=== PATIENT | male | born 1970 | race Caucasian/White ===

== ENCOUNTER 2016-12-02 04:00 | Inpatient (IN) | payer OTHER ==
[~2016-12-02] VITALS: Ht 175.3 cm; Wt 30.3 kg
[2016-12-02] VITALS (16 sets, daily range): BP systolic 93–199; BP diastolic 58–124
[~2016-12-02 04:00] MED LIST: Ativan PO; Bactrim,Septra Singl; DIAZEPAM5 MG PO; Dulcolax PO; FLEXERIL10 MG PO; HYDROCODON-ACE1 EAC7 PO; LORTAB 7.5/51 TABLET PO; MOTRIN800 MG PO; NIFEREX-1501 CAPSULE PO; NOHOMEMEDS; OxyCONTIN PO; Senokot,Sennagen PO; Tylenol Regular Stre PO; ULTRAM50 MG PO; VALIUM5 MG PO; oxyCODONE PO
[2016-12-02 04:12] LABS: BASE EXCESS -3.3 mEq/L (-3 to +3); BICARBONATE 22.1 mEq/L (22-26); CARBOXY HGB 5.8 % (0-5); COMMENTS - BLOOD GASES C+A+; DEVICE 840 VENT; FI02 80 %; MECHANICAL RATE 18 resp/min; METHEMOGLOBIN 1.2 % (0-1.5); MODE AC; PCO2 40 mm Hg (35-45); PEEP 5 CM/H20; PO2 269 mm Hg (80-100); SITE LR; TIDAL VOLUME 500 ML; TOTAL RESP RATE 34 resp/min; pH 7.35 (7.35-7.45)
[2016-12-02 04:17] LABS: POTASSIUM 3.6 mEq/L (3.7-5.4)
[2016-12-02 04:22] LABS: HEMATOCRIT 45.5 % (38.0-50.0); MCH 30.5 PG (29.0-34.0); MCHC 33.4 G/DL (30.0-36.0); MCV 91.4 FL (86-99); MEAN PLAT.VOLUME 8.6 uM^3 (9.0-12.4); PLATELET COUNT 381 K/uL (156-360); RBC DIS.WIDTH-CV 13.6 % (11.8-14.6); RBC DIS.WIDTH-SD 44.4 % (39-53); RED BLOOD COUNT 4.98 M/uL (4.00-5.50); WHITE BLOOD COUNT 20.4 K/uL (4.1-10.2)
[2016-12-02 04:24] LABS: BASOPHIL COUNT 0.1 K/uL (0-0.1); EOSINOPHIL (%) 1.4 % (0-5); EOSINOPHIL COUNT 0.3 K/uL (0-0.3); IMMATURE GRANULOCYTE (%) 1.9 % (0.0-0.7); IMMATURE GRANULOCYTE COUNT 3.9 K/uL; LYMPHOCYTE COUNT 5.7 K/uL (1.0-2.8); MONOCYTE (%) 5.3 % (3-12); MONOCYTE COUNT 1.1 K/uL (0-0.8); NEUTROPHIL (%) 63.5 % (45-76); NEUTROPHIL COUNT 12.9 K/uL (1.8-6.4)
[2016-12-02 04:32] LABS: INTER. NORMALIZED RATIO 1.1; PTT 30.1 (25-32)
[2016-12-02 04:34] LABS: AMYLASE 88 IU/L (1-118); CHLORIDE 103 mEq/L (99-109); POTASSIUM 3.7 mEq/L (3.7-5.4); SODIUM 139 mEq/L (136-147)
[2016-12-02 04:35] LABS: GLUCOSE 244 mg/dL (70-99)
[2016-12-02 04:37] LABS: ANION GAP 17 MEQ/L (2-14)
[2016-12-02 04:39] LABS: GFR ESTIMATE (CALCULATED) > 59 mL/min/; SERUM ETHYL ALCOHOL < 10 mg/dL
[2016-12-02 04:40] LABS: UREA NITROGEN (BUN) 13 mg/dL (9-23)
[2016-12-02 04:42] LABS: LIPASE 73 U/L (1.0-51.0)
[2016-12-02 04:43] LABS: CREATINE KINASE 183 IU/L (1-294); TOTAL CK 183 IU/L (1-294)
[2016-12-02 04:44] LABS: ADD MIUA? YES; BILIRUBIN NEGATIVE; BLOOD MODERATE; COLOR YELLOW ((YELLOW)); GLUCOSE (STRIP) 250; KETONES NEGATIVE; LEUKOCYTES NEGATIVE; NITRITE NEGATIVE; PROTEIN (STRIP) 100; SPECIFIC GRAVITY 1.026 (1.000-1.030); UROBILINOGEN 0.2 MG/DL (0.2-1.0)
[2016-12-02 04:48] LABS: CK-MB 0.9 ng/mL (0.0-4.9); TROP-I INTERPRETATION NEGATIVE; TROPONIN-I < 0.01 ng/mL (0.0-0.30)
[2016-12-02 05:05] LABS: ADD MEDTOX COMMENT Y; AMPHETAMINE NEGATIVE (500 ng/mL); BARBITURATES NEGATIVE (200 ng/mL); BENZODIAZEPINES PRESUMPTIVE POSITIVE (150 ng/mL); COCAINE PRESUMPTIVE POSITIVE (150 ng/mL); INTERNAL CONTROLS VALID? YES; METHADONE NEGATIVE (200 ng/mL); METHAMPHETAMINE NEGATIVE (500 ng/mL); OPIATES (MORPHINE) NEGATIVE (100 ng/mL); OXYCODONE NEGATIVE (100 ng/mL); PHENCYCLIDINE NEGATIVE (25 ng/mL); PROPOXYPHENE NEGATIVE (300 ng/mL); THC CANNABINOIDS PRESUMPTIVE POSITIVE (50 ng/mL); TRICYCLIC ANTIDEPRESSANTS NEGATIVE (300 ng/mL)
[2016-12-02 05:39] LABS: BENZODIAZEPINES, URINE SCREEN POSITIVE (200 ng/mL)
[2016-12-02 05:44] LABS: EPITHELIAL CELLS RARE; MUCUS NONE SEEN; RED BLOOD CELLS 20-30 /HPF (0-5); WHITE BLOOD CELLS 0-5 /HPF (0-5)
[2016-12-02 05:46] LABS: BACTERIA 1+; CASTS PRESENT /LPF; UCUL ADDED? NO
[2016-12-02 05:47] LABS: FINE GRANULAR CASTS RARE /LPF
[2016-12-02 05:52] LABS: CRYSTALS NONE SEEN
[2016-12-02 10:37] LABS: BASE EXCESS -1.1 mEq/L (-3 to +3); BICARBONATE 24.8 mEq/L (22-26); METHEMOGLOBIN 1.5 % (0-1.5); pH 7.35 (7.35-7.45)
[2016-12-02 10:38] LABS: COMMENTS - BLOOD GASES NA C+; DEVICE VENT; FI02 60 %; MECHANICAL RATE 18 resp/min; MODE AC; PCO2 45 mm Hg (35-45); PEEP 5 CM/H20; PO2 109 mm Hg (80-100); SITE RR; TIDAL VOLUME 500 ML; TOTAL RESP RATE 18 resp/min
[2016-12-02 10:59] LABS: METH RESISTANT S AUREUS PCR NEGATIVE (NEGATIVE); PROBE CHECK PASS; SPECIMEN PROCESSING CONTROL PASS
[2016-12-02 12:14] LABS: MAGNESIUM 2.1 mg/dl (1.3-2.7); SAMPLE HEMOLYSIS CHECK 0; SAMPLE ICTERIC CHECK 0; SAMPLE LIPEMIA CHECK 0
[2016-12-02 12:37] LABS: POINT-OF-CARE METER ID UU13113748
[2016-12-02 13:05] LABS: PROTHROMBIN TIME 10.5 (9.2-11.2); PTT 30.1 (25-32)
[2016-12-02 13:08] LABS: EOSINOPHIL (%) 0.1 % (0-5); IMMATURE GRANULOCYTE (%) 0.5 % (0.0-0.7); IMMATURE GRANULOCYTE COUNT 0.1 K/uL; LYMPHOCYTE COUNT 1.2 K/uL (1.0-2.8); MCH 30.5 PG (29.0-34.0); MCHC 33.2 G/DL (30.0-36.0); MCV 91.7 FL (86-99); MEAN PLAT.VOLUME 9.3 uM^3 (9.0-12.4); MONOCYTE (%) 7.7 % (3-12); MONOCYTE COUNT 2.2 K/uL (0-0.8); NEUTROPHIL (%) 87.5 % (45-76); PLATELET COUNT 276 K/uL (156-360); RBC DIS.WIDTH-CV 13.9 % (11.8-14.6); RBC DIS.WIDTH-SD 46.6 % (39-53); RED BLOOD COUNT 5.45 M/uL (4.00-5.50)
[2016-12-02 13:34] LABS: WHITE BLOOD COUNT 28.6 K/uL (4.1-10.2)
[2016-12-02 13:47] LABS: CREATINE KINASE 359 IU/L (1-294); TOTAL CK 359 IU/L (1-294)
[2016-12-02 13:47] LABS: ALKALINE PHOSPHATASE 118 IU/L (3-129); ANION GAP 10 MEQ/L (2-14); CHLORIDE 108 MEQ/L (99-109); MAGNESIUM 1.8 mg/dl (1.3-2.7); POTASSIUM 4.1 MEQ/L (3.7-5.4); SAMPLE HEMOLYSIS CHECK 0; SAMPLE ICTERIC CHECK 0; SAMPLE LIPEMIA CHECK 0; SODIUM 141 MEQ/L (136-147); TOTAL BILIRUBIN 0.5 MG/DL (0.0-1.0); UREA NITROGEN (BUN) 11 mg/dL (9-23)
[2016-12-02 13:49] LABS: GFR ESTIMATE (CALCULATED) > 59 mL/min/; GLUCOSE 121 mg/dL (70-99)
[2016-12-02 14:17] LABS: TROP-I INTERPRETATION NEGATIVE; TROPONIN-I 0.27 ng/mL (0.0-0.30)
[2016-12-02 16:18] LABS: BASE EXCESS 0.5 mEq/L (-3 to +3); BICARBONATE 25.4 mEq/L (22-26); CARBOXY HGB 1.5 % (0-5); COMMENTS - BLOOD GASES A+C+; DEVICE 840; FI02 50 %; METHEMOGLOBIN 1.5 % (0-1.5); MODE A/C; PCO2 41 mm Hg (35-45); PO2 145 mm Hg (80-100); SITE LBR
[2016-12-02 16:19] LABS: MECHANICAL RATE 18 resp/min; PEEP 5 CM/H20; TIDAL VOLUME 500 ML; TOTAL RESP RATE 18 resp/min
[2016-12-02 18:41] LABS: HEMATOCRIT 50.7 % (38.0-50.0); MCH 30.3 PG (29.0-34.0); MCHC 32.7 G/DL (30.0-36.0); MCV 92.5 FL (86-99); MEAN PLAT.VOLUME 9.1 uM^3 (9.0-12.4); PLATELET COUNT 278 K/uL (156-360); RBC DIS.WIDTH-CV 13.8 % (11.8-14.6); RBC DIS.WIDTH-SD 46.5 % (39-53); RED BLOOD COUNT 5.48 M/uL (4.00-5.50); WHITE BLOOD COUNT 25.6 K/uL (4.1-10.2)
[2016-12-02 18:53] LABS: PROTHROMBIN TIME 10.3 (9.2-11.2); PTT 30.3 (25-32)
[2016-12-02 18:54] LABS: POINT-OF-CARE METER ID UU13113748
[2016-12-02 18:57] LABS: ANION GAP 14 MEQ/L (2-14); CHLORIDE 106 MEQ/L (99-109); POTASSIUM 3.9 MEQ/L (3.7-5.4); SAMPLE HEMOLYSIS CHECK 0; SAMPLE ICTERIC CHECK 0; SAMPLE LIPEMIA CHECK 0; SODIUM 144 MEQ/L (136-147)
[2016-12-02 19:03] LABS: GFR ESTIMATE (CALCULATED) > 59 mL/min/; GLUCOSE 105 mg/dL (70-99); UREA NITROGEN (BUN) 10 mg/dL (9-23)
[2016-12-02 19:07] LABS: TROP-I INTERPRETATION NEGATIVE; TROPONIN-I 0.23 ng/mL (0.0-0.30)
[2016-12-02 20:06] LABS: EOSINOPHIL (%) 0.2 % (0-5); EOSINOPHIL COUNT 0.1 K/uL (0-0.3); HEMATOLOGY COMMENT 1 SMEAR COMPATIBLE; IMMATURE GRANULOCYTE (%) 0.5 % (0.0-0.7); IMMATURE GRANULOCYTE COUNT 0.1 K/uL; LYMPHOCYTE COUNT 1.4 K/uL (1.0-2.8); MONOCYTE (%) 6.5 % (3-12); MONOCYTE COUNT 1.7 K/uL (0-0.8); NEUTROPHIL (%) 87.3 % (45-76); NEUTROPHIL COUNT 22.3 K/uL (1.8-6.4); USER ID VLB
[2016-12-02 23:22] LABS: BASE EXCESS 0.2 mEq/L (-3 to +3); BICARBONATE 24.7 mEq/L (22-26); CARBOXY HGB 1.7 % (0-5); COMMENTS - BLOOD GASES C+; DEVICE VENTILATOR; FI02 40 %; MECHANICAL RATE 18 resp/min; METHEMOGLOBIN 1.5 % (0-1.5); MODE AC; PCO2 39 mm Hg (35-45); PEEP 5 CM/H20; PO2 129 mm Hg (80-100); SITE A-LINE; TIDAL VOLUME 500 ML; TOTAL RESP RATE 20 resp/min; pH 7.41 (7.35-7.45)
[2016-12-03] VITALS: BP 94/61
[2016-12-03 00:35] LABS: POINT-OF-CARE METER ID UU13113748
[2016-12-03 00:36] LABS: HEMATOCRIT 43.8 % (38.0-50.0); MCH 30.6 PG (29.0-34.0); MCHC 34.5 G/DL (30.0-36.0); MCV 88.8 FL (86-99); MEAN PLAT.VOLUME 8.6 uM^3 (9.0-12.4); PLATELET COUNT 287 K/uL (156-360); RBC DIS.WIDTH-CV 13.9 % (11.8-14.6); RED BLOOD COUNT 4.93 M/uL (4.00-5.50); WHITE BLOOD COUNT 23.2 K/uL (4.1-10.2)
[2016-12-03 00:44] LABS: EOSINOPHIL (%) 0.3 % (0-5); EOSINOPHIL COUNT 0.1 K/uL (0-0.3); IMMATURE GRANULOCYTE (%) 0.3 % (0.0-0.7); IMMATURE GRANULOCYTE COUNT 0.8 K/uL; LYMPHOCYTE COUNT 1.5 K/uL (1.0-2.8); MONOCYTE COUNT 1.4 K/uL (0-0.8); NEUTROPHIL COUNT 20.2 K/uL (1.8-6.4)
[2016-12-03 00:46] LABS: CHLORIDE 113 mEq/L (99-109); POTASSIUM 3.6 mEq/L (3.7-5.4); SODIUM 143 mEq/L (136-147)
[2016-12-03 00:48] LABS: GLUCOSE 116 mg/dL (70-99)
[2016-12-03 00:49] LABS: ANION GAP 9 MEQ/L (2-14)
[2016-12-03 00:52] LABS: GFR ESTIMATE (CALCULATED) > 59 mL/min/; MAGNESIUM 2.9 mg/dL (1.3-2.7)
[2016-12-03 00:53] LABS: UREA NITROGEN (BUN) 10 mg/dL (9-23)
[2016-12-03 00:54] LABS: TOTAL CK 409 IU/L (1-294)
[2016-12-03 00:56] LABS: CREATINE KINASE 409 IU/L (1-294)
[2016-12-03 00:57] LABS: TROP-I INTERPRETATION NEGATIVE; TROPONIN-I 0.11 ng/mL (0.0-0.30)
[2016-12-03 01:01] LABS: CK-MB 7.4 ng/mL (0.0-4.9); PROTHROMBIN TIME 10.2 (9.2-11.2); PTT 35.5 (25-32)
[2016-12-03 03:46] LABS: BICARBONATE 23.1 mEq/L (22-26); CARBOXY HGB 1.9 % (0-5); COMMENTS - BLOOD GASES C+; DEVICE VENTILATOR; FI02 30 %; MECHANICAL RATE 18 resp/min; METHEMOGLOBIN 1.3 % (0-1.5); MODE AC; PCO2 40 mm Hg (35-45); PO2 101 mm Hg (80-100); SITE A-LINE; TOTAL RESP RATE 18 resp/min; pH 7.37 (7.35-7.45)
[2016-12-03 03:47] LABS: PEEP 5 CM/H20; TIDAL VOLUME 500 ML
[2016-12-03 06:35] LABS: POINT-OF-CARE METER ID UU13113748
[2016-12-03 06:43] LABS: EOSINOPHIL (%) 0.8 % (0-5); EOSINOPHIL COUNT 0.2 K/uL (0-0.3); HEMATOCRIT 42.5 % (38.0-50.0); IMMATURE GRANULOCYTE (%) 0.3 % (0.0-0.7); IMMATURE GRANULOCYTE COUNT 0.1 K/uL; LYMPHOCYTE COUNT 1.4 K/uL (1.0-2.8); MCHC 33.4 G/DL (30.0-36.0); MCV 89.9 FL (86-99); MEAN PLAT.VOLUME 9.4 uM^3 (9.0-12.4); MONOCYTE (%) 5.4 % (3-12); MONOCYTE COUNT 1.2 K/uL (0-0.8); PLATELET COUNT 260 K/uL (156-360); RBC DIS.WIDTH-CV 13.9 % (11.8-14.6); RBC DIS.WIDTH-SD 45.7 % (39-53); RED BLOOD COUNT 4.73 M/uL (4.00-5.50); WHITE BLOOD COUNT 21.8 K/uL (4.1-10.2)
[2016-12-03 06:52] LABS: INTER. NORMALIZED RATIO 1.1; PROTHROMBIN TIME 10.8 (9.2-11.2); PTT 35.2 (25-32)
[2016-12-03 07:12] LABS: TROP-I INTERPRETATION NEGATIVE; TROPONIN-I 0.09 ng/mL (0.0-0.30)
[2016-12-03 07:20] LABS: ALKALINE PHOSPHATASE 91 IU/L (3-129); ANION GAP 8 MEQ/L (2-14); CHLORIDE 109 MEQ/L (99-109); DIRECT BILIRUBIN 0.2 mg/dL (0.0-0.3); GFR ESTIMATE (CALCULATED) > 59 mL/min/; GLUCOSE 106 mg/dL (70-99); POTASSIUM 3.8 MEQ/L (3.7-5.4); SAMPLE HEMOLYSIS CHECK 0; SAMPLE ICTERIC CHECK 0; SAMPLE LIPEMIA CHECK 0; SODIUM 141 MEQ/L (136-147); TOTAL BILIRUBIN 0.6 MG/DL (0.0-1.0); UREA NITROGEN (BUN) 9 mg/dL (9-23)
[2016-12-03 07:24] LABS: MAGNESIUM 2.2 mg/dl (1.3-2.7)
[2016-12-03 07:37] LABS: CK-MB 7.3 ng/mL (0.0-4.9)
[2016-12-03 08:07] LABS: CREATINE KINASE 304 IU/L (1-294); TOTAL CK 304 IU/L (1-294)
[2016-12-03 09:45] VITALS: BP 174/99
[2016-12-03 10:00] VITALS: BP 174/99
[2016-12-03 10:22] LABS: BASE EXCESS -1.4 mEq/L (-3 to +3); BICARBONATE 24.8 mEq/L (22-26); CARBOXY HGB 1.9 % (0-5); METHEMOGLOBIN 1.5 % (0-1.5); pH 7.34 (7.35-7.45)
[2016-12-03 10:23] LABS: COMMENTS - BLOOD GASES A+C+; DEVICE 840; FI02 30 %; MECHANICAL RATE 18 resp/min; MODE AC; PCO2 46 mm Hg (35-45); PEEP 5 CM/H20; PO2 79 mm Hg (80-100); SITE ALINE; TIDAL VOLUME 500 ML; TOTAL RESP RATE 18 resp/min
[2016-12-03 10:27] LABS: HBSG INDEX 0.15; HPCA INDEX 0.17
[2016-12-03 10:28] LABS: ANTI-HEPATITIS A VIRUS (IGM) Nonreactive; HAV INDEX 0.24
[2016-12-03 10:29] LABS: ANTI-HEPATITIS B CORE (IGM) Nonreactive; HBC IgM INDEX 0.13; HIV INDEX 0.14; HIV-1/2 AB/AG COMBO Nonreactive
[2016-12-03 12:39] LABS: HEMATOCRIT 43.9 % (38.0-50.0); MCH 30.7 PG (29.0-34.0); MCHC 33.9 G/DL (30.0-36.0); MCV 90.3 FL (86-99); MEAN PLAT.VOLUME 9.7 uM^3 (9.0-12.4); PLATELET COUNT 288 K/uL (156-360); RBC DIS.WIDTH-CV 14.2 % (11.8-14.6); RBC DIS.WIDTH-SD 46.6 % (39-53); RED BLOOD COUNT 4.86 M/uL (4.00-5.50); WHITE BLOOD COUNT 26.6 K/uL (4.1-10.2)
[2016-12-03 12:40] LABS: POINT-OF-CARE METER ID UU13113748
[2016-12-03 12:46] LABS: EOSINOPHIL (%) 0.2 % (0-5); EOSINOPHIL COUNT 0.1 K/uL (0-0.3); IMMATURE GRANULOCYTE (%) 0.3 % (0.0-0.7); IMMATURE GRANULOCYTE COUNT 0.1 K/uL; LYMPHOCYTE COUNT 0.7 K/uL (1.0-2.8); MONOCYTE (%) 4.9 % (3-12); MONOCYTE COUNT 1.3 K/uL (0-0.8); NEUTROPHIL COUNT 24.5 K/uL (1.8-6.4)
[2016-12-03 12:52] LABS: INTER. NORMALIZED RATIO 1.1; PTT 34.4 (25-32)
[2016-12-03 13:05] LABS: TROP-I INTERPRETATION NEGATIVE; TROPONIN-I 0.07 ng/mL (0.0-0.30)
[2016-12-03 13:56] LABS: ANION GAP 10 MEQ/L (2-14); CHLORIDE 109 MEQ/L (99-109); GFR ESTIMATE (CALCULATED) > 59 mL/min/; GLUCOSE 97 mg/dL (70-99); MAGNESIUM 1.7 mg/dl (1.3-2.7); POTASSIUM 3.8 MEQ/L (3.7-5.4); SAMPLE HEMOLYSIS CHECK 0; SAMPLE ICTERIC CHECK 0; SAMPLE LIPEMIA CHECK 0; SODIUM 144 MEQ/L (136-147); UREA NITROGEN (BUN) 8 mg/dL (9-23)
[2016-12-03 15:58] LABS: BASE EXCESS -3.4 mEq/L (-3 to +3); CARBOXY HGB 1.8 % (0-5); METHEMOGLOBIN 1.5 % (0-1.5); PO2 86 mm Hg (80-100)
[2016-12-03 15:59] LABS: BICARBONATE 19.5 mEq/L (22-26); COMMENTS - BLOOD GASES C+; DEVICE VENT; FI02 30 %; MECHANICAL RATE 18 resp/min; MODE AC; O2 FLOW 0 L/MIN; PCO2 28 mm Hg (35-45); PEEP 5 CM/H20; SITE ALINE; TIDAL VOLUME 500 ML; TOTAL RESP RATE 28 resp/min; pH 7.45 (7.35-7.45)
[2016-12-03 17:59] LABS: HEMATOCRIT 42.9 % (38.0-50.0); MCH 30.8 PG (29.0-34.0); MCHC 34.3 G/DL (30.0-36.0); MCV 89.7 FL (86-99); MEAN PLAT.VOLUME 9.4 uM^3 (9.0-12.4); PLATELET COUNT 278 K/uL (156-360); RBC DIS.WIDTH-SD 45.8 % (39-53); RED BLOOD COUNT 4.78 M/uL (4.00-5.50); WHITE BLOOD COUNT 27.3 K/uL (4.1-10.2)
[2016-12-03 18:26] LABS: EOSINOPHIL (%) 0 % (0-5); IMMATURE GRANULOCYTE (%) 0.3 % (0.0-0.7); IMMATURE GRANULOCYTE COUNT 0.1 K/uL; LYMPHOCYTE COUNT 0.9 K/uL (1.0-2.8); MONOCYTE COUNT 1.1 K/uL (0-0.8); NEUTROPHIL (%) 92.5 % (45-76); NEUTROPHIL COUNT 25.3 K/uL (1.8-6.4); PROTHROMBIN TIME 10.3 (9.2-11.2); PTT 34.1 (25-32)
[2016-12-03 18:27] LABS: TROP-I INTERPRETATION NEGATIVE; TROPONIN-I 0.07 ng/mL (0.0-0.30)
[2016-12-03 18:29] LABS: ANION GAP 10 MEQ/L (2-14); CHLORIDE 107 MEQ/L (99-109); GFR ESTIMATE (CALCULATED) > 59 mL/min/; GLUCOSE 100 mg/dL (70-99); SAMPLE HEMOLYSIS CHECK 0; SAMPLE ICTERIC CHECK 0; SAMPLE LIPEMIA CHECK 0; SODIUM 140 MEQ/L (136-147); UREA NITROGEN (BUN) 6 mg/dL (9-23)
[2016-12-03 18:32] LABS: MAGNESIUM 2.3 mg/dl (1.3-2.7)
[2016-12-03 18:32] LABS: POINT-OF-CARE METER ID UU13113748
[2016-12-03 22:00] VITALS: BP 95/58
[2016-12-03 22:08] LABS: BASE EXCESS 1.7 mEq/L (-3 to +3); BICARBONATE 25.8 mEq/L (22-26); COMMENTS - BLOOD GASES C+; DEVICE 840; FI02 30 %; MECHANICAL RATE 18 resp/min; METHEMOGLOBIN 1.5 % (0-1.5); MODE AC; PCO2 38 mm Hg (35-45); PEEP 5 CM/H20; PO2 82 mm Hg (80-100); SITE ALINE; TIDAL VOLUME 470 ML; TOTAL RESP RATE 22 resp/min; pH 7.44 (7.35-7.45)
[2016-12-04 00:23] LABS: POINT-OF-CARE METER ID UU13113748
[2016-12-04 01:08] LABS: HEMATOCRIT 40.8 % (38.0-50.0); MCH 30.6 PG (29.0-34.0); MCHC 34.3 G/DL (30.0-36.0); MCV 89.1 FL (86-99); MEAN PLAT.VOLUME 8.8 uM^3 (9.0-12.4); PLATELET COUNT 293 K/uL (156-360); RBC DIS.WIDTH-SD 44.5 % (39-53); RED BLOOD COUNT 4.58 M/uL (4.00-5.50); WHITE BLOOD COUNT 26.2 K/uL (4.1-10.2)
[2016-12-04 01:18] LABS: CHLORIDE 113 mEq/L (99-109); POTASSIUM 3.6 mEq/L (3.7-5.4)
[2016-12-04 01:19] LABS: SODIUM 145 mEq/L (136-147)
[2016-12-04 01:19] LABS: EOSINOPHIL (%) 0.3 % (0-5); EOSINOPHIL COUNT 0.1 K/uL (0-0.3); IMMATURE GRANULOCYTE (%) 0.3 % (0.0-0.7); IMMATURE GRANULOCYTE COUNT 0.7 K/uL; LYMPHOCYTE COUNT 1.3 K/uL (1.0-2.8); MONOCYTE (%) 4.7 % (3-12); MONOCYTE COUNT 1.2 K/uL (0-0.8); NEUTROPHIL (%) 89.8 % (45-76); NEUTROPHIL COUNT 23.5 K/uL (1.8-6.4)
[2016-12-04 01:20] LABS: MAGNESIUM 2.1 mg/dL (1.3-2.7)
[2016-12-04 01:21] LABS: GLUCOSE 102 mg/dL (70-99)
[2016-12-04 01:22] LABS: ANION GAP 9 MEQ/L (2-14)
[2016-12-04 01:23] LABS: INTER. NORMALIZED RATIO 1.1; PROTHROMBIN TIME 10.7 (9.2-11.2)
[2016-12-04 01:24] LABS: GFR ESTIMATE (CALCULATED) > 59 mL/min/
[2016-12-04 01:25] LABS: UREA NITROGEN (BUN) 5 mg/dL (9-23)
[2016-12-04 01:30] LABS: TROP-I INTERPRETATION NEGATIVE; TROPONIN-I 0.05 ng/mL (0.0-0.30)
[2016-12-04 05:31] LABS: POINT-OF-CARE METER ID UU13113748
[2016-12-04 05:48] LABS: HEMATOCRIT 39.4 % (38.0-50.0); MCH 30.6 PG (29.0-34.0); MCHC 33.8 G/DL (30.0-36.0); MCV 90.6 FL (86-99); MEAN PLAT.VOLUME 9.7 uM^3 (9.0-12.4); PLATELET COUNT 272 K/uL (156-360); RBC DIS.WIDTH-CV 14.4 % (11.8-14.6); RBC DIS.WIDTH-SD 47.6 % (39-53); RED BLOOD COUNT 4.35 M/uL (4.00-5.50); WHITE BLOOD COUNT 23.8 K/uL (4.1-10.2)
[2016-12-04 06:01] LABS: PROTHROMBIN TIME 10.4 (9.2-11.2); PTT 36.9 (25-32)
[2016-12-04 06:04] LABS: EOSINOPHIL (%) 0.2 % (0-5); EOSINOPHIL COUNT 0.1 K/uL (0-0.3); IMMATURE GRANULOCYTE (%) 0.3 % (0.0-0.7); IMMATURE GRANULOCYTE COUNT 0.1 K/uL; MONOCYTE (%) 4.5 % (3-12); MONOCYTE COUNT 1.1 K/uL (0-0.8); NEUTROPHIL (%) 90.6 % (45-76); NEUTROPHIL COUNT 21.5 K/uL (1.8-6.4)
[2016-12-04 06:13] LABS: ANION GAP 7 MEQ/L (2-14); CHLORIDE 111 MEQ/L (99-109); GFR ESTIMATE (CALCULATED) > 59 mL/min/; GLUCOSE 88 mg/dL (70-99); POTASSIUM 3.9 MEQ/L (3.7-5.4); SAMPLE HEMOLYSIS CHECK 0; SAMPLE ICTERIC CHECK 0; SAMPLE LIPEMIA CHECK 0; SODIUM 144 MEQ/L (136-147); UREA NITROGEN (BUN) 5 mg/dL (9-23)
[2016-12-04 06:21] LABS: TROP-I INTERPRETATION NEGATIVE; TROPONIN-I 0.04 ng/mL (0.0-0.30)
[2016-12-04 06:22] LABS: MAGNESIUM 1.8 mg/dl (1.3-2.7)
[2016-12-04 08:00] VITALS: BP 101/78
[2016-12-04 11:36] LABS: POINT-OF-CARE METER ID UU13113731
[2016-12-04 12:10] LABS: ALKALINE PHOSPHATASE 89 IU/L (3-129); DIRECT BILIRUBIN 0.1 mg/dL (0.0-0.3); TOTAL BILIRUBIN 0.5 MG/DL (0.0-1.0)
[2016-12-04 12:10] LABS: HEMATOCRIT 38.8 % (38.0-50.0); MCH 30.9 PG (29.0-34.0); MCHC 34.3 G/DL (30.0-36.0); PLATELET COUNT 279 K/uL (156-360); RBC DIS.WIDTH-CV 14.6 % (11.8-14.6); RBC DIS.WIDTH-SD 46.7 % (39-53); RED BLOOD COUNT 4.31 M/uL (4.00-5.50); WHITE BLOOD COUNT 23.2 K/uL (4.1-10.2)
[2016-12-04 12:19] LABS: CHLORIDE 113 mEq/L (99-109); POTASSIUM 3.9 mEq/L (3.7-5.4); SODIUM 146 mEq/L (136-147)
[2016-12-04 12:21] LABS: EOSINOPHIL (%) 0.3 % (0-5); EOSINOPHIL COUNT 0.1 K/uL (0-0.3); GLUCOSE 102 mg/dL (70-99); IMMATURE GRANULOCYTE (%) 0.3 % (0.0-0.7); IMMATURE GRANULOCYTE COUNT 0.8 K/uL; LYMPHOCYTE COUNT 1.4 K/uL (1.0-2.8); MAGNESIUM 2.8 mg/dL (1.3-2.7); MONOCYTE (%) 5.7 % (3-12); MONOCYTE COUNT 1.3 K/uL (0-0.8); NEUTROPHIL (%) 87.8 % (45-76); NEUTROPHIL COUNT 20.3 K/uL (1.8-6.4); PROTHROMBIN TIME 10.1 (9.2-11.2); PTT 35.4 (25-32)
[2016-12-04 12:23] LABS: ANION GAP 10 MEQ/L (2-14)
[2016-12-04 12:25] LABS: GFR ESTIMATE (CALCULATED) > 59 mL/min/
[2016-12-04 12:26] LABS: UREA NITROGEN (BUN) 5 mg/dL (9-23)
[2016-12-04 12:31] LABS: TROP-I INTERPRETATION NEGATIVE; TROPONIN-I 0.03 ng/mL (0.0-0.30)
[2016-12-04 17:31] LABS: POINT-OF-CARE METER ID UU14174217
[2016-12-04 18:18] LABS: POINT-OF-CARE METER ID UU13113731
[2016-12-04 19:46] LABS: EOSINOPHIL (%) 0.4 % (0-5); EOSINOPHIL COUNT 0.1 K/uL (0-0.3); HEMATOCRIT 35.9 % (38.0-50.0); IMMATURE GRANULOCYTE (%) 0.3 % (0.0-0.7); IMMATURE GRANULOCYTE COUNT 0.1 K/uL; LYMPHOCYTE COUNT 1.5 K/uL (1.0-2.8); MCH 29.7 PG (29.0-34.0); MCHC 32.9 G/DL (30.0-36.0); MCV 90.4 FL (86-99); MEAN PLAT.VOLUME 9.3 uM^3 (9.0-12.4); MONOCYTE (%) 7.3 % (3-12); MONOCYTE COUNT 1.4 K/uL (0-0.8); NEUTROPHIL (%) 84.4 % (45-76); NEUTROPHIL COUNT 16.4 K/uL (1.8-6.4); PLATELET COUNT 239 K/uL (156-360); RBC DIS.WIDTH-CV 14.6 % (11.8-14.6); RBC DIS.WIDTH-SD 48.1 % (39-53); RED BLOOD COUNT 3.97 M/uL (4.00-5.50); WHITE BLOOD COUNT 19.4 K/uL (4.1-10.2)
[2016-12-04 19:59] LABS: PROTHROMBIN TIME 10.5 (9.2-11.2); PTT 34.3 (25-32)
[2016-12-04 20:10] LABS: ANION GAP 5 MEQ/L (2-14); CHLORIDE 112 MEQ/L (99-109); GFR ESTIMATE (CALCULATED) > 59 mL/min/; GLUCOSE 78 mg/dL (70-99); POTASSIUM 3.8 MEQ/L (3.7-5.4); SAMPLE HEMOLYSIS CHECK 0; SAMPLE ICTERIC CHECK 0; SAMPLE LIPEMIA CHECK 0; SODIUM 143 MEQ/L (136-147); UREA NITROGEN (BUN) 6 mg/dL (9-23)
[2016-12-04 20:11] LABS: MAGNESIUM 2.1 mg/dl (1.3-2.7); TROP-I INTERPRETATION NEGATIVE; TROPONIN-I 0.03 ng/mL (0.0-0.30)
[2016-12-04 22:00] VITALS: BP 103/74
[2016-12-05 00:41] LABS: POINT-OF-CARE METER ID UU13113731
[2016-12-05 01:35] LABS: POINT-OF-CARE METER ID UU14162636
[2016-12-05 05:50] LABS: POINT-OF-CARE METER ID UU14162636
[2016-12-05 06:26] LABS: EOSINOPHIL (%) 0.4 % (0-5); EOSINOPHIL COUNT 0.1 K/uL (0-0.3); HEMATOCRIT 34.8 % (38.0-50.0); IMMATURE GRANULOCYTE (%) 0.3 % (0.0-0.7); MCH 30.2 PG (29.0-34.0); MCHC 32.8 G/DL (30.0-36.0); MCV 92.1 FL (86-99); MEAN PLAT.VOLUME 9.8 uM^3 (9.0-12.4); MONOCYTE (%) 6.8 % (3-12); MONOCYTE COUNT 1.1 K/uL (0-0.8); NEUTROPHIL (%) 79.6 % (45-76); NEUTROPHIL COUNT 12.6 K/uL (1.8-6.4); PLATELET COUNT 239 K/uL (156-360); RBC DIS.WIDTH-SD 50.7 % (39-53); RED BLOOD COUNT 3.78 M/uL (4.00-5.50); WHITE BLOOD COUNT 15.9 K/uL (4.1-10.2)
[2016-12-05 06:54] LABS: ALKALINE PHOSPHATASE 91 IU/L (3-129); ANION GAP 10 MEQ/L (2-14); CHLORIDE 107 MEQ/L (99-109); DIRECT BILIRUBIN 0.2 mg/dL (0.0-0.3); GFR ESTIMATE (CALCULATED) > 59 mL/min/; GLUCOSE 70 mg/dL (70-99); POTASSIUM 3.6 MEQ/L (3.7-5.4); SAMPLE HEMOLYSIS CHECK 0; SAMPLE ICTERIC CHECK 0; SAMPLE LIPEMIA CHECK 0; SODIUM 140 MEQ/L (136-147); TOTAL BILIRUBIN 0.6 MG/DL (0.0-1.0); UREA NITROGEN (BUN) 8 mg/dL (9-23)
[2016-12-05 09:00] VITALS: BP 135/76
[2016-12-05 11:00] VITALS: BP 135/76
[2016-12-05 11:12] LABS: POINT-OF-CARE METER ID UU14162636
[2016-12-05 12:00] VITALS: BP 99/55
[2016-12-05 13:15] LABS: POINT-OF-CARE METER ID UU14162636
[2016-12-05 16:39] LABS: POINT-OF-CARE METER ID UU14162636
[2016-12-05 21:00] VITALS: BP 95/61
[2016-12-05 23:00] VITALS: BP 142/88
[2016-12-06] VITALS (7 sets, daily range): BP systolic 96–142; BP diastolic 54–85
[2016-12-06 00:13] LABS: POINT-OF-CARE METER ID UU13113731
[2016-12-06 05:41] LABS: POINT-OF-CARE METER ID UU13113731
[2016-12-06 06:12] LABS: EOSINOPHIL COUNT 0.2 K/uL (0-0.3); HEMATOCRIT 33.1 % (38.0-50.0); IMMATURE GRANULOCYTE (%) 0.3 % (0.0-0.7); LYMPHOCYTE COUNT 1.6 K/uL (1.0-2.8); MCH 30.2 PG (29.0-34.0); MCHC 32.9 G/DL (30.0-36.0); MCV 91.7 FL (86-99); MEAN PLAT.VOLUME 9.5 uM^3 (9.0-12.4); MONOCYTE (%) 9.6 % (3-12); MONOCYTE COUNT 1.1 K/uL (0-0.8); NEUTROPHIL (%) 73.5 % (45-76); PLATELET COUNT 216 K/uL (156-360); RBC DIS.WIDTH-CV 14.7 % (11.8-14.6); RBC DIS.WIDTH-SD 49.6 % (39-53); RED BLOOD COUNT 3.61 M/uL (4.00-5.50)
[2016-12-06 06:13] LABS: WHITE BLOOD COUNT 10.9 K/uL (4.1-10.2)
[2016-12-06 06:35] LABS: ALKALINE PHOSPHATASE 84 IU/L (3-129); ANION GAP 10 MEQ/L (2-14); CHLORIDE 110 MEQ/L (99-109); DIRECT BILIRUBIN 0.1 mg/dL (0.0-0.3); GFR ESTIMATE (CALCULATED) > 59 mL/min/; POTASSIUM 3.7 MEQ/L (3.7-5.4); SAMPLE HEMOLYSIS CHECK 0; SAMPLE ICTERIC CHECK 0; SAMPLE LIPEMIA CHECK 0; SODIUM 145 MEQ/L (136-147); UREA NITROGEN (BUN) 8 mg/dL (9-23)
[2016-12-06 06:36] LABS: GLUCOSE 92 mg/dL (70-99); TOTAL BILIRUBIN 0.4 MG/DL (0.0-1.0)
[2016-12-06 11:26] LABS: POINT-OF-CARE METER ID UU13113748
== END 2016-12-06 20:45 | DRG 252 ==
LOC: EME → EDBD 04:00 → EME 04:00 → 4WEST 07:09 → EDOF 07:09 → 4WEST 07:09
PROVIDERS: Emergency Medicine; Internal Medicine Nephrology
PROC: 0BH17EZ Insertion of Endotracheal Airway into Trachea, Via Natural or Artificial Opening (ICD-10-PCS; principal; 2016-12-02)
PROC: 03HB3DZ Insertion of Intraluminal Device into Right Radial Artery, Percutaneous Approach (ICD-10-PCS; principal; 2016-12-02)
PROC: 5A1945Z Respiratory Ventilation, 24-96 Consecutive Hours (ICD-10-PCS; principal; 2016-12-02)
DX: I46.9 Cardiac arrest, cause unspecified (principal); R40.20 Unspecified coma; J96.00 Acute respiratory failure, unspecified whether with hypoxia or hypercapnia; J69.0 Pneumonitis due to inhalation of food and vomit; G93.1 Anoxic brain damage, not elsewhere classified; G89.29 Other chronic pain; F32.9 Major depressive disorder, single episode, unspecified; F17.200 Nicotine dependence, unspecified, uncomplicated; J45.909 Unspecified asthma, uncomplicated; Z88.2 Allergy status to sulfonamides; T50.901A Poisoning by unspecified drugs, medicaments and biological substances, accidental (unintentional), initial encounter; M54.9 Dorsalgia, unspecified; G25.3 Myoclonus; D72.829 Elevated white blood cell count, unspecified; E83.39 Other disorders of phosphorus metabolism; E87.6 Hypokalemia
CPT/HCPCS: 36600; 70450; 71010; 71275; 74177; 80047; 80048; 80048 91; 80053; 80074; 80076; 81003; 82150; 82330; 82550; 82550 91; 82553; 82803; 82948; 83605; 83690; 83735; 83880; 84100; 84484; 84999; 85025; 85025 91; 85610; 85730; 86703; 86850; 86900; 86901; 87040; 87070; 87205; 87641; 93005; 94002; 94003; 94640; 94640 76; 95819; 99202; 99281; 99285; G0480; J0692; J1650; J1815; J1953; J2060; J2250; J2270; J2543; J2704; J3010; J3475; J3480; J7030; J7050; J7120; S0028; S0030